=== PATIENT | female | born 1975 | race Caucasian/White ===

== ENCOUNTER → 2022-05-09 | Outpatient (REF) | payer OTHER ==
[2022-05-09 16:58] LABS: APPEARANCE, URINE MANUAL HAZY (CLEAR); COLOR, URINE MANUAL YELLOW (YELLOW)
[2022-05-09 16:59] LABS: BILIRUBIN, URINE MANUAL NEGATIVE (NEGATIVE); BLOOD URINE MANUAL POSITIVE (NEGATIVE); GLUCOSE, URINE (UA) MANUAL NEGATIVE (NEGATIVE); KETONE, URINE MANUAL NEGATIVE (NEGATIVE); LEUKOCYTE ESTERASE, URINE MAN POSITIVE (NEGATIVE); NITRITE, URINE MANUAL POSITIVE (NEGATIVE); PH,URINE MAN 8.5 UNITS (5.0 - 7.0); PROTEIN, URINE MANUAL 1+ mg/dL (NEGATIVE); SPECIFIC GRAVITY,URINE MANUAL 1.005 (1.002-1.035); UROBILINOGEN, URINE MANUAL NORMAL (NORMAL)
[2022-05-09 17:21] LABS: AMORPHOUS SEDIMENT, URINE SMALL AMOUNT (NEGATIVE); BACTERIA, URINE LARGE AMOUNT; HYALINE CAST, URINE NONE SEEN /lpf (0-1); RBC, URINE 0-1 /hpf (0-3); RENAL EPITHELIAL CELLS, URINE MOD AMOUNT /hpf; SQUAMOUS EPITHELIAL CELL URINE MOD AMOUNT /hpf (SMALL AMT); TRANSITIONAL EPI CELLS, URINE SMALL AMOUNT /hpf
[2022-05-09 17:22] LABS: MUCUS, URINE MOD AMOUNT (NEGATIVE)
== END ==
LOC: M LAB REF 16:32
PROVIDERS: ATTEND Physician Assistant
DX: N39.0 Urinary tract infection, site not specified (principal)

== ENCOUNTER → 2024-03-18 | Outpatient (CLI) | payer OTHER ==
[~2024-03-18] MED LIST: ERGO500029; HYDR200T46; OMEP40CA5; PRED10TA2
== END ==
LOC: M RAD 08:45
PROVIDERS: ATTEND Internal Medicine Hematology & Oncology
DX: D69.6 Thrombocytopenia, unspecified (principal); K80.20 Calculus of gallbladder without cholecystitis without obstruction; R16.0 Hepatomegaly, not elsewhere classified; R93.2 Abnormal findings on diagnostic imaging of liver and biliary tract